=== PATIENT | female | born 1965 | race Caucasian/White ===

== ENCOUNTER → 2016-09-05 | Outpatient (CLI) | payer MEDICAID ==
[~2016-09-05] MED LIST: AMLODIPINE10 M2 PO; CARVEDILOL 1212.5 MG PO; FLEXERIL10 MG PO; GABAPENTIN100 M1 PO; LOSARTAN POTAS100 MG PO; OXYCODONE HCL30 MG PO; OXYCODONE HYDRO30 MG PO; SYNTHROID 0.0.075 MG PO; XANAX 1MG TABLET1 MG PO
[2016-09-05 15:36] LABS: AMPHETAMINES/METAMPHETAMINES NEGATIVE ng/mL (<1000)
[2016-09-13 08:46] LABS: Opiates Negative (Cutoff=100)
== END ==
LOC: LAB 14:10
PROVIDERS: Emergency Medicine
DX: Z79.899 Other long term (current) drug therapy (principal)

== ENCOUNTER → 2016-10-30 | Outpatient (CLI) | payer MEDICAID ==
[2016-10-30 14:26] LABS: AMPHETAMINES/METAMPHETAMINES NEGATIVE ng/mL (<1000)
== END ==
LOC: LAB 13:19
PROVIDERS: Emergency Medicine
DX: Z79.899 Other long term (current) drug therapy (principal)

== ENCOUNTER → 2016-12-26 | Outpatient (CLI) | payer MEDICAID ==
[2016-12-26 15:41] LABS: AMPHETAMINES/METAMPHETAMINES NEGATIVE ng/mL (<1000)
[2017-01-01 16:41] LABS: Opiates Negative (Cutoff=100)
== END ==
LOC: LAB 13:11
PROVIDERS: Emergency Medicine
DX: Z79.899 Other long term (current) drug therapy (principal)

== ENCOUNTER → 2017-01-22 | Outpatient (CLI) | payer MEDICAID ==
[2017-01-22 14:14] LABS: AMPHETAMINES/METAMPHETAMINES NEGATIVE ng/mL (<1000)
== END ==
LOC: LAB 13:06
PROVIDERS: Emergency Medicine
DX: Z79.899 Other long term (current) drug therapy (principal)

== ENCOUNTER → 2017-03-20 | Outpatient (CLI) | payer MEDICAID ==
[2017-03-20 16:35] LABS: AMPHETAMINES/METAMPHETAMINES NEGATIVE ng/mL (<1000)
== END ==
LOC: LAB 15:28
PROVIDERS: Emergency Medicine
DX: Z79.899 Other long term (current) drug therapy (principal)

== ENCOUNTER → 2017-03-28 | Outpatient (CLI) | payer MEDICAID ==
--- NOTE | 2017-04-01 09:57 | RADIOLOGY REPORT PS360 ---
DIG MAMM-SCREEN [facility] W/CAD ORDERING PHYSICIAN : Aleks Salazar MD PATIENT AGE: 51 years GENDER: Female COMPARISON: Prior studies mammogram from [place] have been purged. No previous for comparison HISTORY:No hormones. No new complaints.Family history. Mother breast cancer age 62 TECHNIQUE: Std CC & MLO images were obtained. R2 CAD reviewed. FINDINGS: Moderate breast density in this younger patient. Prior films unfortunately are not available purged from closed [place] facility LEFT BREAST:: There is asymmetric density deep axillary left breast. Of this measures up to 2.2 cm maximally. It seems to have interposed fat and may be a benign features such as a fibrolipoma or merely an island of glandular tissue there are some dense calcifications here and thus I fibroadenoma is also a consideration the does warrant spot views CC and MLO spot view with a full 90 degree view left breast. Ultrasound also suggest left breast RIGHT BREAST: Moderate breast density. Minimal nodularity most notable superior left breast . Most likely normal tissue. These areas labeled A&B; and would benefit from spot MLO view and a full 90 view of the right breast the patient returns. The densities here persists ultrasound of right breast may be of benefit but more likely these are merely areas of glandular asymmetry. IMPRESSION: No prior studies available for comparison Moderately dense breast bilaterally Left breast: Asymmetric area of density at the deep axillary left breast., [place] spot views & ultrasound to further evaluate this area labeled X. But more likely benign feature Right breast. Minimal nodularity superior breast would benefit from spot MLO andfull 90 view of the right breast when patient returnsBI -BI-RADS CATEGORY: 0_Incomplete: Need additional imaging. RECOMMENDED FOLLOWUP: ADD ADDITIONAL IMAGING bilateral (A letter has been sent to the patient regarding results of the study.)
== END ==
LOC: RAD 09:15
DX: Z12.31 Encounter for screening mammogram for malignant neoplasm of breast (principal)
CPT/HCPCS: G0202